=== PATIENT | female | born 1975 | race Caucasian/White ===

== ENCOUNTER → 2023-09-18 | Emergency (ER) | payer OTHER ==
--- NOTE | 2023-09-18 07:46 | ER ---
Nurse's Notes [facility] Name: Natalie Munson Age: 47 yrs Sex: Female : 1975 Arrival Date: 09/18/2023 Time: 07:04 Bed 5 Private MD: Diagnosis: Ingrown toenail;Enterocolitis due to Clostridium difficile;Onychomycosis Presentation: 09/18 07:26 Chief complaint: Patient states: CHUY big toe pain with redness, swelling, and bleeding kc6 for "years". Coronavirus screen: At this time, the client does not indicate any symptoms associated with coronavirus-19. Ebola Screen: No symptoms or risks identified at this time. Initial Sepsis Screen: Does the patient meet any 2 criteria? No. Patient's initial sepsis screen is negative. Does the patient have a suspected source of infection? No. Patient's initial sepsis screen is negative. Risk Assessment: Do you want to hurt yourself or someone else? Patient reports no desire to harm self or others. Onset of symptoms was September 18, 2023. 07:26 Method Of Arrival: Ambulatory [facility] 07:26 Acuity: VERO 4 kc6 Triage Assessment: 07:27 General: Appears in no apparent distress. comfortable, well groomed, well developed, kc6 Behavior is cooperative, anxious. Pain: Complains of pain in right foot and left foot. EENT: No signs and/or symptoms were reported regarding the EENT system. Neuro: Level of Consciousness is awake, alert, obeys commands, Oriented to person, place, time, situation, Appropriate for age. Cardiovascular: Capillary refill < 3 seconds. Respiratory: Airway is patent Trachea midline Respiratory effort is even, unlabored, Respiratory pattern is regular, symmetrical. GI: No signs and/or symptoms were reported involving the gastrointestinal system. : No signs and/or symptoms were reported regarding the genitourinary system. Derm: Skin is intact, is healthy with good turgor, Skin is pink, warm \\T\\ dry. Musculoskeletal: No signs and/or symptoms reported regarding the musculoskeletal system. Circulation, motion, and sensation intact. Capillary refill < 3 seconds, Range of motion: intact in all extremities. Injury Description: redness, swelling and dried blood located to CHUY big toes. Historical: - Allergies: 07:27 Sulfa (Sulfonamide Antibiotics); kc6 07:47 Phenergan; kc6 - PMHx: 07:27 c diff; ptsd; Anxiety; Depressive disorder; kc6 - Immunization history:: Adult Immunizations unknown. - Social history:: Smoking status: unknown. Screenin:32 [facility] ED Fall Risk Assessment (Adult) History of falling in the last 3 months, kc6 including since admission No falls in past 3 months (0 pts) Confusion or Disorientation No (0 pts) Intoxicated or Sedated No (0 pts) Impaired Gait No (0 pts) Mobility Assist Device Used No (0 pt) Altered Elimination No (0 pt) Score/Fall Risk Level 0 - 2 = Low Risk. Abuse screen: Denies threats or abuse. Denies injuries from another. Nutritional screening: No deficits noted. Tuberculosis screening: No symptoms or risk factors identified. Assessment: 07:33 Reassessment: please see triage assessment. 6 Vital Signs: 07:47 BP 123 / 92; Pulse 100; Resp 16 S; Temp 97.9(TE); Pulse Ox 98% on R/A; Weight 81.19 kg kc (R); Height 4 ft. 11 in. (R); 07:47 Body Mass Index 36.15 (81.19 kg, 149.86 cm) 6 ED Course: 07:06 Patient arrived in ED. rg4 07:08 Jorje Cortez DO is Attending Physician. ms3 07:27 Triage completed. kc6 07:27 Arm band placed on. kc6 07:32 Patient maintains SpO2 saturation greater than 95% on room air. kc6 07:33 Patient has correct armband on for positive identification. Bed in low position. Call [facility] light in reach. Side rails up X 1. Adult w/ patient. Client placed on continuous cardiac and pulse oximetry monitoring. NIBP monitoring applied. 07:44 Rubén Zuñiga DPM is Referral Physician. ms3 07:44 Terry Monreal MD is Referral Physician. ms3 07:54 No provider procedures requiring assistance completed. Patient did not have IV access ph during this emergency room visit. Administered Medications: No medications were administered Medication: 07:54 VIS not applicable for this client. ph Outcome: 07:45 Discharge ordered by . ms3 07:54 Discharged to home ambulatory, with significant other, ph 07:54 Condition: good 07:54 Discharge instructions given to patient, Instructed on discharge instructions, follow up and referral plans. Demonstrated understanding of instructions, follow-up care, 07:54 Patient left the ED. ph Signatures: Rosy Solomon, RN RN Rita Webb rg4 Jorje Cortez DO DO ms3 Aubrie Reyes RN RN kc6 Corrections: (The following items were deleted from the chart) 07:48 07:47 Allergies: Promethazine; kc6 kc6
--- NOTE | 2023-09-18 07:46 | EDPHYS ---
Physician Documentation [facility] Name: Natalie Munson Age: 47 yrs Sex: Female : 1975 Arrival Date: 09/18/2023 Time: 07:04 Bed 5 Private MD: ED Physician Jorje Cortez HPI: 09/18 07:47 This 47 yrs old Female presents to ER via Ambulatory with complaints of Toenail ms3 Infection. 07:47 47-year-old female with past medical history of C. difficile, PTSD, anxiety, depression ms3 presents to the emergency department for bilateral ingrown toenails on her great toes. Patient states this has been ongoing for 13 years. Patient states the pain is severe. Patient denies any alleviating or inciting factors. Patient states she has not the toenail follow-up. Patient notes she also has C. difficile and is currently taking vancomycin orally for the infection.. Historical: - Allergies: 07:27 Sulfa (Sulfonamide Antibiotics); kc6 07:47 Phenergan; kc6 - PMHx: 07:27 c diff; ptsd; Anxiety; Depressive disorder; kc6 - Immunization history:: Adult Immunizations unknown. - Social history:: Smoking status: unknown. ROS: 07:47 Constitutional: Negative for fever, and chills. Neck: Negative for injury, pain, and ms3 swelling, Cardiovascular: Negative for chest pain, and palpitations. Respiratory: Negative for shortness of breath, cough, wheezing, and pleuritic chest pain, 07:47 Skin: Negative for injury, rash, and discoloration, 07:47 Abdomen/GI: Positive for abdominal pain, diarrhea, 07:47 All other systems are negative, Exam: 07:47 Constitutional: This is a well developed, well nourished patient who is awake, alert, ms3 and in no acute distress. Head/Face: Normocephalic, atraumatic. Neck: Trachea midline, no cervical lymphadenopathy. Supple, full range of motion without nuchal rigidity, or vertebral point tenderness. No Meningismus. Chest/axilla: Normal chest wall appearance and motion. Nontender with no deformity. Cardiovascular: Regular rate and rhythm with a normal S1 and S2. No gallops, murmurs, or rubs. Normal PMI, no JVD. No pulse deficits. Respiratory: Lungs have equal breath sounds bilaterally, clear to auscultation and percussion. No rales, rhonchi or wheezes noted. No increased work of breathing, no retractions or nasal flaring. Abdomen/GI: Soft, non-tender, with normal bowel sounds. No distension or tympany. No guarding or rebound. No evidence of tenderness throughout. 07:47 Musculoskeletal/extremity: Nails: Left great toenail with bilateral margins removed, mild erythema present, Vital Signs: 07:47 BP 123 / 92; Pulse 100; Resp 16 S; Temp 97.9(TE); Pulse Ox 98% on R/A; Weight 81.19 kg kc6 (R); Height 4 ft. 11 in. (R); 07:47 Body Mass Index 36.15 (81.19 kg, 149.86 cm) kc6 MDM: 07:44 Patient medically screened. ms3 07:47 Differential diagnosis: Temporal diagnosis includes ingrown toenail versus cellulitis ms3 versus C diff. Data reviewed: vital signs, nurses notes, and as a result, I will discharge patient. I considered the following discharge prescriptions or medication management in the emergency department I discussed and recommended Over The Counter medications. Counseling: I had a detailed discussion with the patient and/or guardian regarding the historical points, exam findings, and any diagnostic results supporting the discharge/admit diagnosis, the need for outpatient follow up, to return to the emergency department if symptoms worsen or persist or if there are any questions or concerns that arise at home. Special discussion: I discussed with the patient/guardian in detail that at this point there is no indication for admission to the hospital. It is understood, however, that if the symptoms persist or worsen the patient needs to return immediately for re-evaluation. ED course: Discussed warm water Epsom salt soaks twice a day with patient. Discussed with patient to discontinue attempting to dig her toenail out. Discussed [id number] triple antibiotic ointment. Patient to follow-up with Dr. Zuñiga in 2 to 3 days. Discussed patient's current C. difficile infection with patient and she is currently on oral vancomycin. Patient states her symptoms have been stable. Patient to follow-up Dr. Llamas in 2 to 3 days. Patient understands and agrees with plan. All questions were answered. Return precautions discussed include worsening symptoms, or any other concerns. Administered Medications: No medications were administered Disposition Summary: 09/18/23 07:45 Discharge Ordered Notes: Location: Home ms3 Condition: Stable ms3 Diagnosis - Ingrown toenail ms3 - Enterocolitis due to Clostridium difficile ms3 - Onychomycosis ms3 Followup: ms3 - With: Rubén Zuñiga DPM - When: 2 - 3 days - Reason: Recheck today's complaints Followup: ms3 - With: Terry Monreal MD - When: 2 - 3 days - Reason: Recheck today's complaints Discharge Instructions: - Discharge Summary Sheet ms3 - Ingrown Toenail ms3 - Clostridioides Difficile Infection, [id number] ms3 Forms: - Medication Reconciliation Form ms3 - Thank You Letter ms3 - Antibiotic Education ms3 - Prescription Opioid Use ms3 - Patient Portal Instructions ms3 - Leadership Thank You Letter ms3 Signatures: Jorje Cortez DO DO ms3 Aubrie Reyes RN RN kc6 Corrections: (The following items were deleted from the chart) 07:48 07:47 Allergies: Promethazine; kc6 kc6
== END ==
LOC: ER 07:04
DX: L60.0 Ingrowing nail (principal); A04.72 Enterocolitis due to Clostridium difficile, not specified as recurrent; B35.1 Tinea unguium; Z88.2 Allergy status to sulfonamides; Z88.8 Allergy status to other drugs, medicaments and biological substances

== ENCOUNTER → 2023-09-19 | Emergency (ER) | payer OTHER ==
[~2023-09-19] MED LIST: DICYCLOMINE HCL 10 MG CAP ONE; HYDROCODONE/APAP 10/325 TAB ONE; KETOROLAC 30 MG/ML INJ ONE; LORAZEPAM 1 MG TABLET ONE; MORPHINE 4 MG/ML SYR ONE; NA CHLORIDE 0.9% 1,000 ML ONE; ONDANSETRON 4 MG/2 ML VIAL ONE
[2023-09-20 00:57] LABS: Specific Gravity 1.008 (1.005-1.030)
[2023-09-20 01:06] LABS: Specific Gravity 1.008 (1.005-1.030); Urine Bacteria None Seen /HPF (<20); Urine Bilirubin NEGATIVE (Negative); Urine Blood Negative (Negative); Urine Clarity Clear (Clear); Urine Color Dark-Yellow (Yellow); Urine Glucose NEGATIVE (Negative); Urine Protein NEGATIVE (Negative); Urine RBC None Seen /HPF (None Seen); Urine Urobilinogen Normal (Normal); Urine pH 6.5 (5.0-7.0)
[2023-09-20 01:32] LABS: Absolute Lymphocytes (CBC) 2.9 K/uL (0.7-4.9); Hematocrit 40.6 % (36.0-45.0); Lymphocytes % 28.8 % (15.3-44.8); MCV 94.6 fL (80-100); MPV 7.4 fL (7.6-11.3); Platelets 261 thou/uL (152-406); RBC Red Blood Cell Count 4.29 M/uL (3.86-4.86)
[2023-09-20 01:43] LABS: Albumin 3.9 g/dL (3.4-5.0); Bilirubin Total 0.4 mg/dL (0.2-1.0); Potassium 3.9 mEq/L (3.5-5.1); Protein, Total 7.7 g/dL (6.4-8.2)
--- NOTE | 2023-09-20 03:26 | EDPHYS ---
Physician Documentation [facility] Name: Natalie Munson Age: 47 yrs Sex: Female : 1975 Arrival Date: 09/19/2023 Time: 21:36 Bed 7 Private MD: ED Physician Wilber Whitaker HPI: 09/19 21:46 This 47 yrs old Female presents to ER via Unassigned with complaints of PT sp4 STATED SHE IS POSITIVE FOR C DIFF AND IS HAVING SEVERE ABD PAIN. 09/20 02:21 39-year-old female presents with 5 weeks of abdominal discomfort watery diarrhea and sp4 episode of fevers at home. Patient was diagnosed with C. difficile 09/12/2023 started on vancomycin 125 mg p.o. every 6 hours for 10 days. Reports worsening abdominal pain watery diarrhea and feeling unwell. Also temperature at home 100.1.. 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 - Social history:: Smoking status: Patient denies any tobacco usage or history of. - Family history:: not pertinent. ROS: 09/20 02:21 Constitutional: Positive fevers, abdominal pain, watery diarrhea. sp4 All other systems are negative, Exam: 02:21 Constitutional: This is a well developed, well nourished patient who is awake, alert, sp4 and in no acute distress. Anxious appearing Head/Face: Normocephalic, atraumatic. Eyes: Pupils equal round and reactive to light, extra-ocular motions intact. Lids and lashes normal. Conjunctiva and sclera are not injected. Cornea within normal limits. Periorbital areas with no swelling, redness, or edema. ENT: Nares patent. No nasal discharge, no septal abnormalities noted. Tympanic membranes are normal and external auditory canals are clear. Oropharynx with no redness, swelling, or masses, exudates, or evidence of obstruction, uvula midline. Mucous membranes moist. Neck: Trachea midline, no thyromegaly or masses palpated, and no cervical lymphadenopathy. Supple, full range of motion without nuchal rigidity, or vertebral point tenderness. Chest/axilla: Normal chest wall appearance and motion. Nontender with no deformity. No lesions are appreciated. Cardiovascular: Regular rate and rhythm with a normal S1 and S2. No gallops, murmurs, or rubs. Normal PMI, no JVD. No pulse deficits. Respiratory: Lungs have equal breath sounds bilaterally, clear to auscultation and percussion. No rales, rhonchi or wheezes noted. No increased work of breathing, no retractions or nasal flaring. Abdomen/GI: Soft, non-tender, with normal bowel sounds. No distension or tympany. No guarding or rebound. No evidence of tenderness throughout. Back: No spinal tenderness. No costovertebral tenderness. Skin: Warm, dry with normal turgor. Normal color with no rashes, no lesions, and no evidence of cellulitis. MS/ Extremity: Pulses equal, no cyanosis. Neurovascular intact. Full, normal range of motion. Neuro: Awake and alert, GCS 15, oriented to person, place, time, and situation. Cranial nerves II-XII grossly intact. Motor strength 5/5 in all extremities. Sensory grossly intact. Psych: Awake, alert, with orientation to person, place and time. Anxious appearing Vital Signs: 09/19 22:00 Pulse 109; Resp 19; Temp 98.2; Pulse Ox 98% ; Weight 81.19 kg; Height 4 ft. 11 in. ; ap3 Pain 10/10; 22:02 BP 133 / 88; ap3 09/20 01:46 BP 160 / 97; Pulse 93; Resp 17; Pulse Ox 99% ; jj7 02:57 BP 136 / 91; Pulse 103; Resp 18; Pulse Ox 99% ; jj7 03:30 BP 137 / 82; Pulse 100; Resp 17; Pulse Ox 97% ; jj7 02 22:00 Body Mass Index 36.15 (81.19 kg, 149.86 cm) ap3 02 22:00 Pain Scale: Adult ap3 MDM: 09/19 22:14 Patient medically screened. sp4 09/20 03:21 ED course: EXAM: CTAbdomen and Pelvis With Intravenous Contrast CLINICAL HISTORY: ABD sp4 PAIN TECHNIQUE: Axial computed tomography images of the abdomen and pelvis with intravenous contrast. Sagittal and coronal reformatted images were created and reviewed. This CT exam was performed using one or more of the following dose reduction techniques: automated exposure control, adjustment of the mA and/or kV according to patient size, and/or use of iterative reconstruction technique. COMPARISON: No relevant prior studies available. FINDINGS: Lung bases: Unremarkable. No mass. No consolidation. Mediastinum: The distal esophagus is mildly patulous and fluid-filled. ABDOMEN: Liver: The liver is enlarged and diffusely low in density compatible with steatosis. Gallbladder and bile ducts: Prior cholecystectomy. Biliary dilatation. The common duct measures up to 13 mm in short axis. Pancreas: Proximal pancreatic ductal dilation measuring up to 7 mm in diameter. Spleen: Unremarkable. No splenomegaly. Adrenals: Unremarkable. No mass. Kidneys and ureters: Unremarkable. No solid mass. No hydronephrosis. Stomach and bowel: Prior gastric bypass. No bowel obstruction. Colonic diverticula without adjacent inflammatory change. No mucosal thickening. PELVIS: Appendix: The appendix is not definitively visualized. Pericecal clips suggestive of prior appendectomy. Bladder: Unremarkable. No mass. Reproductive: There has been a hysterectomy. No adnexal cysts or masses are identified. ABDOMEN and PELVIS: Intraperitoneal space: Unremarkable. No free air. No significant fluid collection. Bones/joints: Mild multilevel osteophytic lipping. No acute fracture. No dislocation. Soft tissues: Unremarkable. Vasculature: Unremarkable. No abdominal aortic aneurysm. Lymph nodes: Unremarkable. No enlarged lymph nodes. IMPRESSION: 1. No acute inflammatory process identified within the abdomen and pelvis. 2. Biliary and pancreatic ductal dilation. Nonemergent MRCP or ERCP is recommended to evaluate for underlying mass or stenosis. 3. Other findings as above. Electronically signed by: Inna Avitia MD 09/20/2023 02:51 AM. 03:24 Differential Diagnosis altered mental status, sepsis, flu, Colitis . Data reviewed: sp4 vital signs, nurses notes, lab test result(s), electrolytes, hepatic panel. Consideration of Admission/Observation Escalation of care including admission/observation considered. ED course: CT reveals no colonic inflammation. White count is normal. Patient is stable for discharge home with follow-up with Dr. Tomi Raymond with gastroenterology . 09/19 21:48 Order name: CBC with Diff; Complete Time: 01:48 sp4 09/19 21:48 Order name: CMP; Complete Time: 01:48 sp4 09/19 21:48 Order name: Lipase; Complete Time: 01:48 sp4 09/19 21:49 Order name: Urinalysis W/Microscopic; Complete Time: 01:28 sp4 09/19 21:49 Order name: Test, Urine; Complete Time: 01:28 sp4 09/19 21:48 Order name: CT Abd/Pelvis - IV Contrast Only sp4 09/19 21:48 Order name: IV Saline Lock; Complete Time: 01:40 sp4 09/19 21:48 Order name: Labs collected and sent; Complete Time: 01:40 sp4 Administered Medications: 02:00 Drug: Ondansetron IVP 4 mg IVP once; over 2 minutes Route: IVP; Site: right antecubital;pf1 02:00 Drug: Ketorolac IVP 30 mg IVP once Route: IVP; Site: right antecubital; pf1 02:00 Drug: NS 0.9% IV 1000 ml IV at 1 bolus Per protocol; 1000 mL bolus Route: IV; Rate: 1 pf1 bolus; Site: right antecubital; 02:04 CANCELLED (Physician Discretion): norco10 mg-325 mg 1 tabs PO once pf1 02:20 Drug: Dicyclomine PO 20 mg PO once Route: PO; pf1 02:20 Drug: LORazepam PO 2 mg PO once Route: PO; pf1 02:20 Drug: morphine IVP or IV 4 mg IVP once over 4 mins Route: IVP; Infused Over: 4 mins; pf1 Site: right antecubital; Disposition Summary: 09/20/23 03:26 Discharge Ordered Problem: new sp4 Symptoms: have improved sp4 Condition: Stable sp4 Diagnosis - Infectious gastroenteritis and colitis, unspecified sp4 - History of C. difficile, clostridial colitis sp4 Followup: sp4 - With: Private Physician - When: 7 - 10 days - Reason: Recheck today's complaints Discharge Instructions: - Discharge Summary Sheet sp4 - Colitis sp4 Forms: - Patient Portal Instructions sp4 Prescriptions: - ondansetron 8 mg Oral Tablet,disintegrating - take 1 tablet ORAL route every 8 hours; 30 tablet; Refills: 0, Product sp4 Selection Permitted Signatures: Dispatcher [employer] Rukhsana Mix RN RN dara3 Xuan Cao RN RN pf1 Wilber Whitaker MD MD sp4 Corrections: (The following items were deleted from the chart) 02:04 02 22:15 Ponce PO 10 mg-325 mg 1 tabs PO once ordered. sp4 pf1 09/20 02:04 02:04 Ponce PO 10 mg-325 mg 1 tabs PO once ordered. pf1 pf1
--- NOTE | 2023-09-20 03:26 | ER ---
Nurse's Notes [facility] Name: Natalie Munson Age: 47 yrs Sex: Female : 1975 Arrival Date: 09/19/2023 Time: 21:36 Bed 7 Private MD: Diagnosis: Infectious gastroenteritis and colitis, unspecified;History of C. difficile, clostridial colitis Presentation: 09/19 22:00 Chief complaint: Patient states: she was diagnosed with C-DIFF 5 weeks ago, and the ap3 pain isn't getting any better.. patient reports diarrhea X's 4 today. patient states that her pain is currently a 10/10 on the pain scale. Coronavirus screen: At this time, the client does not indicate any symptoms associated with coronavirus-19. Ebola Screen: No symptoms or risks identified at this time. Initial Sepsis Screen: Does the patient meet any 2 criteria? No. Patient's initial sepsis screen is negative. Does the patient have a suspected source of infection? No. Patient's initial sepsis screen is negative. Risk Assessment: Do you want to hurt yourself or someone else? Patient reports no desire to harm self or others. Onset of symptoms is unknown. 22:00 Method Of Arrival: Ambulatory ap3 22:00 Acuity: VERO 3 ap3 Triage Assessment: 22:02 General: Appears uncomfortable, Behavior is crying. Pain: Complains of pain in abdomen ap3 Pain currently is 10 out of 10 on a pain scale. Neuro: Level of Consciousness is awake, alert, obeys commands, Oriented to person, place, time, situation, Appropriate for age. Cardiovascular: Patient's skin is warm and dry. Respiratory: Airway is patent Respiratory effort is even, unlabored, Respiratory pattern is regular, symmetrical. GI: Reports diarrhea, nausea. 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 - Social history:: Smoking status: Patient denies any tobacco usage or history of. - Family history:: not pertinent. Screenin:02 Abuse screen: Denies threats or abuse. Nutritional screening: No deficits noted. ap3 Tuberculosis screening: No symptoms or risk factors identified. 09/20 02:15 [facility] ED Fall Risk Assessment (Adult) History of falling in the last 3 months, jj7 including since admission No falls in past 3 months (0 pts) Confusion or Disorientation No (0 pts) Intoxicated or Sedated No (0 pts) Impaired Gait No (0 pts) Mobility Assist Device Used No (0 pt) Altered Elimination No (0 pt) Score/Fall Risk Level 0 - 2 = Low Risk Oriented to surroundings, Maintained a safe environment, Educated pt \T\ family on fall prevention, incl call for assistance when getting out of bed. Assessment: 02:15 General: Appears in no apparent distress. comfortable, Behavior is calm, cooperative, jj7 appropriate for age. Pain: Complains of pain in abdomen. GI: Reports lower abdominal pain, upper abdominal pain. 04:05 Reassessment: PT STATES SHE WOULD LIKE TO SPEAK TO THE DOCTOR ABOUT HER LABS. PT STATES jj7 SHE WILL NOT LEAVE UNTIL MD EXPLAINS LABS. 04:17 Reassessment: MD AT BEDSIDE EXPLAINING ALL LAB RESULTS TO PT AGAIN. PT VERBALIZES jj7 UNDERSTANDING. Vital Signs: 09/19 22:00 Pulse 109; Resp 19; Temp 98.2; Pulse Ox 98% ; Weight 81.19 kg; Height 4 ft. 11 in. ; ap3 Pain 10/10; 22:02 BP 133 / 88; ap3 02/07 01:46 BP 160 / 97; Pulse 93; Resp 17; Pulse Ox 99% ; jj7 02:57 BP 136 / 91; Pulse 103; Resp 18; Pulse Ox 99% ; jj7 03:30 BP 137 / 82; Pulse 100; Resp 17; Pulse Ox 97% ; jj7 02 22:00 Body Mass Index 36.15 (81.19 kg, 149.86 cm) ap3 09/19 22:00 Pain Scale: Adult ap3 ED Course: 09/19 21:41 Patient arrived in ED. jj6 21:45 Wilber Whitaker MD is Attending Physician. sp4 22:01 Triage completed. ap3 22:03 Arm band placed on left wrist. ap3 09/20 00:40 Test, Urine Sent. rv1 00:40 Urinalysis W/Microscopic Sent. rv1 01:40 Inserted saline lock: 20 gauge in right antecubital area, using aseptic technique. jj7 Blood collected. 02:15 Patient has correct armband on for positive identification. Bed in low position. Call jj7 light in reach. Side rails up X 1. Warm blanket given. 02:15 No provider procedures requiring assistance completed. jj7 02:32 CT Abd/Pelvis - IV Contrast Only In Process Unspecified. EDMS 04:00 IV discontinued, intact, bleeding controlled, No redness/swelling at site. Pressure jj7 dressing applied. Administered Medications: 02:00 Drug: Ondansetron IVP 4 mg IVP once; over 2 minutes Route: IVP; Site: right antecubital;pf1 02:00 Drug: Ketorolac IVP 30 mg IVP once Route: IVP; Site: right antecubital; pf1 02:00 Drug: NS 0.9% IV 1000 ml IV at 1 bolus Per protocol; 1000 mL bolus Route: IV; Rate: 1 pf1 bolus; Site: right antecubital; 02:04 CANCELLED (Physician Discretion): norco10 mg-325 mg 1 tabs PO once pf1 02:20 Drug: Dicyclomine PO 20 mg PO once Route: PO; pf1 02:20 Drug: LORazepam PO 2 mg PO once Route: PO; pf1 02:20 Drug: morphine IVP or IV 4 mg IVP once over 4 mins Route: IVP; Infused Over: 4 mins; pf1 Site: right antecubital; Medication: 02:15 VIS not applicable for this client. jj7 Outcome: 03:26 Discharge ordered by . spAlethea 04:00 Discharged to home ambulatory, jj7 04:00 Condition: improved 04:00 Discharge instructions given to patient, Instructed on discharge instructions, follow up and referral plans. medication usage, Demonstrated understanding of instructions, follow-up care, medications, Prescriptions given X 1, 04:18 Patient left the ED. jj7 Signatures: Dispatcher [employer] EDMS Rukhsana Guardado RN RN ap3 Sierra Diez jj6 Suleman Blackmon RN RN jj7 Xuan Cao RN RN pf1 Bita Acosta rv1 Potepalov, Wilber, MD MD sp4
--- NOTE | 2023-09-20 10:02 | RAD REPORT ---
EXAM DESCRIPTION: CT - Abdomen Pelvis W Contrast - 09/20/2023 6:35 am CLINICAL HISTORY: ABD PAIN TECHNIQUE: Axial computed tomography images of the abdomen and pelvis with intravenous contrast. S agittal and coronal reformatted images were created and reviewed. This CT exam was performed using one or more of the following dose reduction techniques: automated exposure control, adjustment of t he mA and/or kV according to patient size, and/or use of iterative reconstruction technique. COMPARISON: No relevant prior studies available. FINDINGS: Lung bases: Unremarkable. No mass. No consolidation. Mediastinum: The distal esophagus is mildly patulous and fluid-filled. ABDOMEN: Liver: The liver is enlarged and diffusely low in density compatible with steatosis. Gallbladder and bile ducts: Prior cholecystectomy. Biliary dilatation. The common duct measures up to 13 mm in short axis. Pancreas: Proximal pancreatic ductal dilation measuring up to 7 mm in diameter. Spleen: Unremarkable. No splenomegaly. Adrenals: Unremarkable. No mass. Kidneys and ureters: Unremarkable. No solid mass. No hydronephrosis. Stomach and bowel: Prior gastric bypass. No bowel obstruction. Colonic diverticula without adjacent inflammatory change. No mucosal thickening. PELVIS: Appendix: The appendix is not definitively visualized. Pericecal clips suggestive of prior appendec adilson. Bladder: Unremarkable. No mass. Reproductive: There has been a hysterectomy. No adnexal cysts or masses are identified. ABDOMEN and PELVIS: Intraperitoneal space: Unremarkable. No free air. No significant fluid collection. Bones/joints: Mild multilevel osteophytic lipping. No acute fracture. No dislocation. Soft tissues: Unremarkable. Vasculature: Unremarkable. No abdominal aortic aneurysm. Lymph nodes: Unremarkable. No enlarged lymph nodes. IMPRESSION: 1. No acute inflammatory process identified within the abdomen and pelvis. 2. Biliary and pancreatic ductal dilation. Nonemergent MRCP or ERCP is recommended to evaluate for underlying mass or stenosis. 3. Other findings as above. Electronically signed by: Inna Avitia MD 09/20/2023 02:51 AM [employer] Due to temporary technical issues with the PACS/Fluency reporting system, reports are being signed by the in house radiologist without review as a courtesy to ensure prompt reporting. The interpreting r adiologist is fully responsible for the content of the report.
== END ==
LOC: ER 21:36
DX: A09 Infectious gastroenteritis and colitis, unspecified (principal); A04.72 Enterocolitis due to Clostridium difficile, not specified as recurrent
CPT/HCPCS: 74177; Q9967